=== PATIENT | male | born 1990 | race Caucasian/White ===

== ENCOUNTER 2021-05-02 16:12 | Outpatient (CLI) | payer OTHER, SELFPAY ==
--- NOTE | ~2021-05-02 | CT_ITS ---
EXAMINATION: CT abdomen pelvis w con DATE: 05/02/2021 16:36 INDICATION: Left lower quadrant abdominal pain. TECHNIQUE: Computed tomography (CT) of the abdomen and pelvis was performed with 100 mL Omnipaque 350 intravenous contrast. Automated exposure control and iterative reconstruction technique were employe d. The dose-length product was 1111.50 mGy-cm. COMPARISON: None. FINDINGS: The visualized portions of the lung bases are clear without pneumonia or pleural effusion. The heart size is normal. No pericardial effusion. There is diffuse hepatic steatosis. The gallbladde r, spleen, pancreas, adrenal glands, and kidneys are normal. There is prominent fat in the inguinal c anals bilaterally that may be hernias. There are scattered diverticula in the colon. There is wall th ickening of the sigmoid colon with surrounding fat stranding, consistent with diverticulitis. The joyce endix is normal. There are no dilated loops of bowel. There are no pathologically enlarged lymph node s. There is no free intraperitoneal fluid. There is mild lumbar spondylosis. IMPRESSION: 1. Sigmoid diverticulitis. No perforation or abscess. Reviewed, dictated and finalized at location A.
== END 2021-05-02 16:13 | disposition home or self-care (01) ==
LOC: ANHIMG 16:17
PROVIDERS: PCP Physician Assistant; Visit Provider Physician Assistant
DX: K57.32 Diverticulitis of large intestine without perforation or abscess without bleeding (principal)
CPT/HCPCS: 74177; Q9967

== ENCOUNTER → 2021-08-15 03:42 | Outpatient (CLI) | payer OTHER, SELFPAY ==
[2021-08-15 19:14] LABS: SARS-CoV-2 RNA PCR Positive
== END ==
PROVIDERS: PCP Physician Assistant; Visit Provider Physician Assistant
DX: U07.1 COVID-19 (principal)
CPT/HCPCS: C9803; U0003; U0005

== ENCOUNTER 2022-11-08 16:39 | Emergency (ER) | payer OTHER, SELFPAY ==
[2022-11-08 17:22] VITALS: BP 147/97; PULSE 99; RESP 16; TEMP 37.1; O2SAT 99
--- NOTE | 2022-11-09 19:07 | ED.GENADULT ---
HPI - General Adult General Chief complaint: Abdominal Pain Stated complaint: lower abdomen pain History of Present Illness HPI narrative: 31 y/o male. PMHx non-contributory. [facility] with acute complaints of LLQ/RLQ abdominal pain, worsening in the past 48 hours. He describes a 'sharp' abdominal discomfort, radiating across lower abdomen and RLQ. -Positive nausea, no emesis. -Denies fever. -No chest pain, dyspnea. -No flank pain, urinary concerns. -Denies loose or bloody stool. -No falls or abdominal traumas. Related Data Allergies Allergy/AdvReac Type Severity Reaction Status Date / Time No Known Allergies Allergy Verified 11/08/22 18:26 Review of Systems Review of Systems: CONSTITUTIONAL: Denies fever, chills, sweats. CARDIOVASCULAR: Denies chest pain, palpitations, edema. RESPIRATORY: Denies dyspnea, wheezing, cough GASTROINTESTINAL: Positive abdominal pain, nausea. No vomiting, diarrhea. GENITOURINARY: Denies dysuria, hematuria, abnormal discharge All other systems have been reviewed: Unless noted remaining ROS Negative. [facility] Family History Family History Mother Patient's mother is in good health Father Patient's father is in good health Sibling Patient's brother is in good health Social History Social History Smoking status: Former smoker Second hand tobacco smoke exposure: No Smoking end date: 11/11/12 Alcohol intake: current Exam Narrative: GENERAL: This is a well-nourished, well-developed adult, in no apparent distress. HEAD: normocephalic EYES: PERRL. Sclera clear/white. NOSE: External nose normal. THROAT: Mucous membranes moist CARDIOVASCULAR: Regular rate and rhythm without murmurs, gallops, or rubs. RESPIRATORY: Clear to auscultation. GASTROINTESTINAL: Abdomen soft, nondistended. With LLQ/RLQ tenderness and rebound. Bowel sounds are active. No guarding. SKIN: No janudice NEURO: Alert, active, and age appropriate. Course Course Level of Care: Express Care Visit Vital Signs Vital signs: Vital Signs Temperature 37.1 C 11/08/22 17:22 Pulse Rate 99 11/08/22 17:22 Respiratory Rate 16 11/08/22 17:22 Blood Pressure 147/97 H 11/08/22 17:22 Pulse Oximetry 99 11/08/22 17:22 Temperature 37.1 C 11/08/22 17:22 Pulse Rate 99 11/08/22 17:22 Respiratory Rate 16 11/08/22 17:22 Blood Pressure 147/97 H 11/08/22 17:22 Pulse Oximetry 99 11/08/22 17:22 Transfer Transfered to: [place] (ER ) Transportation: Other (Personal Vehicle. ) Transfer rationale: [facility] care [facility]. Accepting physician: MD Don. Medical Decision Making MDM Narrative Medical decision making narrative: -RLQ/LLQ abdominal pain and rebound. -Client will need additional resources to include CT abdominal imaging and laboratory studies, that are unfortunately not available here at the [facility] location. -DDX: Acute Abdomen, appendicitis, Colitis, Diverticulitis, Cholecystitis, SBO, or other. -Transfer to [place] [facility], [facility] care. Accepting MD Don. -Plan for transfer and need for additional workup has been reviewed with the patient at the bedside, whom voices no additional questions or concerns and agrees. -I appreciate the above [place] ED MD assist in his clinical case. Thank you. Differential Diagnosis Differential Diagnosis: Differential Diagnosis: Consideration of the following conditions may be warranted for the presenting problem, they are not final diagnoses: Acute Abdomen, appendicitis, Colitis, Diverticulitis, Cholecystitis, SBO, or other. Vital Signs Vital Signs: Vital Signs Temperature 37.1 C 11/08/22 17:22 Pulse Rate 99 11/08/22 17:22 Respiratory Rate 16 11/08/22 17:22 Blood Pressure 147/97 H 11/08/22 17:22 Pulse Oximetry 99 11/08/22 17:22 Temperature 37.1 C 11/08/22 17:22
== END 2022-11-08 18:00 | disposition short-term general hospital (02) ==
PROVIDERS: Emergency Provider Nurse Practitioner Adult Health; PCP Physician Assistant
DX: R10.32 Left lower quadrant pain (principal); R10.31 Right lower quadrant pain; Z87.891 Personal history of nicotine dependence
CPT/HCPCS: 81003; 99212; G0463

== ENCOUNTER 2022-11-08 18:22 | Emergency (ER) | payer OTHER, SELFPAY ==
[2022-11-08 18:23] VITALS: PULSE 108; RESP 15; TEMP 36.9; O2SAT 99
[2022-11-08 18:39] LABS: Basophils Absolute Auto 0.1 K/mm3 (0.0-0.1); Basophils Percent Auto 0.4 % (0.2-1.2); Eosinophils Absolute Auto 0.1 K/mm3 (0-0.3); Eosinophils Percent Auto 0.9 % (0-4.4); Hematocrit 42.4 % (42.0-52.0); Hemoglobin 14.3 g/dL (14.0-18.0); Immature Granulocyte Absolute 0.11 K/mm3 (0.00-0.031); Immature Granulocyte Percent A 0.8 % (0-0.5); Lymphocytes Percent Auto 16.4 % (18.3-44.2); Mean Corpuscular HGB Conc 33.7 g/dl (32-36); Mean Corpuscular Hemoglobin 28.3 pg (26-34); Mean Corpuscular Volume 83.8 fl (80-100); Mean Platelet Volume 8.6 fl (7.4-10.4); Monocytes Absolute Auto 1.1 K/mm3 (0.1-0.6); Monocytes Percent Auto 7.6 % (2.6-8.5); Neutrophils Absolute Auto 10.9 K/mm3 (1.3-6.7); Neutrophils Percent Auto 73.9 % (45.5-73.1); Platelet Count Result 258 k/mm3 (150-375); Red Blood Count 5.06 M/mm3 (4.6-6.20); Red Cell Distribution Width 12.4 % (11.5-14.5); White Blood Count 14.7 K/mm3 (4.5-10.0)
[2022-11-08 18:50] LABS: Alanine Aminotransferase 53 U/L (6-50); Albumin Level 4.6 g/dL (3.5-5.1); Alkaline Phosphatase 80 U/L (38-126); Anion Gap 8 mmol/L (8-16); Aspartate Amino Transferase 25 U/L (17-59); Bilirubin,Total 0.5 mg/dL (0.2-1.3); Blood Urea Nitrogen 12 mg/dL (9-20); Carbon Dioxide 29 mmol/L (22-30); Chloride 102 mmol/L (98-107); Estimated CRCL calculation 124 ml/min; Estimated Glomerular Filt Rate > 60; Glucose 97 mg/dL (65-110); Lipase 56 U/L (23-300); Potassium 3.8 mmol/L (3.4-5.0); Sodium 139 mmol/L (137-145)
[2022-11-08 19:33] LABS: Add Urine Microscopic? NO; Appearance Urine Clear (Clear); Bilirubin Urine Negative (Negative); Blood Urine Negative (Negative); Color Urine Yellow (Yellow); Glucose Urine UA Negative (Negative); Ketones Urine Negative (Negative); Leukocyte Esterase Ur Negative LEU/UL (Negative); Nitrate Urine Negative (Negative); Protein Urine Negative (Negative); Urobilinogen Urine 0.2 mg/dL (<2.0); pH Urine 5.5 (5.0-9.0)
== END 2022-11-08 20:00 | disposition left against medical advice (07) ==
PROVIDERS: Emergency Provider Emergency Medicine; PCP Physician Assistant
DX: R10.32 Left lower quadrant pain (principal)
CPT/HCPCS: 36415; 80053; 81003; 83690; 85025; 99199; 99212; G0463

== ENCOUNTER 2022-11-09 11:34 | Emergency (ER) | payer OTHER, SELFPAY ==
--- NOTE | 2022-11-09 11:36 | PC.NURSE ---
After checking pt in, pt looks at the waiting room and states Jose Angel waddell just go to [place] Pt ambluates to the exit with no difficulty
== END 2022-11-09 11:36 | disposition left against medical advice (07) ==
PROVIDERS: PCP Physician Assistant
DX: Z53.21 Procedure and treatment not carried out due to patient leaving prior to being seen by health care provider (principal)
CPT/HCPCS: 99199

== ENCOUNTER 2024-09-01 13:24 | Emergency (ER) | payer OTHER, SELFPAY ==
--- NOTE | ~2024-09-01 | XR_ITS ---
3 VIEWS LUMBAR SPINE Ordering provider: Georgia Triana APRN History: . pain, pulling injury yesterday . Comparison: None. FINDINGS: VERTEBRAL BODIES: No visible fracture or subluxation. DISK SPACES: Normal. SOFT TISSUES: Normal. IMPRESSION: No acute osseous abnormality lumbar spine. Reviewed, dictated and finalized at location A.
[2024-09-01 13:38] VITALS: BP 111/67; PULSE 60; RESP 17; TEMP 36.6; O2SAT 100
--- NOTE | 2024-09-01 13:40 | ED.BACK ---
HPI - Back Pain/Injury General Chief Complaint: Back Pain/Injury Stated Complaint: sharp pain lower back Time Seen by Provider: 09/01/24 13:40 Source: patient Mode of arrival: ambulatory Limitations: no limitations History of Present Illness HPI Narrative: 33 y/o male presented for c/o mid lower back pain after injury sustained yesterday. States he was trying to pull a wooden stake out of the yard, but it did not budge when he pulled as hard as he could. He felt a pop and has had pain since. Rates pain 06/20. Pain is worse when raising from a seated position or when walking. Taking Tylenol and ibuprofen. Denies pain radiating into the hips or legs, numbness, tingling, weakness of the lower extremities, or change in gait, saddle paresthesia or loss of bowel or bladder. Related Data Home Medications Medication Instructions Recorded Confirmed aripiprazole 5 mg tablet (Abilify) 5 mg PO DAILY 09/01/24 09/01/24 oxcarbazepine 150 mg tablet 150 mg PO BID 09/01/24 09/01/24 Allergies Allergy/AdvReac Type Severity Reaction Status Date / Time No Known Allergies Allergy Verified 09/01/24 13:29 Review of Systems Review of Systems: CONSTITUTIONAL: Denies body aches, fever, chills EYES: Denies visual changes CARDIOVASCULAR: Denies chest pain, palpitations, or edema. RESPIRATORY: Denies cough or dyspnea. GASTROINTESTINAL: Denies abdominal pain, nausea, vomiting, or diarrhea. SKIN: Denies rash, itching, or wounds. MUSCULOSKELETAL: reports back pain NEUROLOGIC: Denies headache, numbness, tingling, or weakness. All systems reviewed & are unremarkable except as noted in HPI and below PMFSH Past Medical History Medical History Acute diverticulitis Family History Family History Mother Patient's mother is in good health Father Patient's father is in good health Sibling Patient's brother is in good health Social History Social History Smoking status: Former smoker Second hand tobacco smoke exposure: No Smoking end date: 11/11/12 Alcohol intake: current Substance use: unknown Lack of Transportation: No Lack of Food: Never True Current Housing: I Have Housing Concerned About Future Housing: No Difficulty Paying Gas/Electric Bills: No Difficulty Paying for Meds: No Currently Unemployed: No Education: Associate Degree Difficulty w/ Childcare or Family Care: No Comments At time of signature, I have reviewed and agree with nursing past medical, surgical, social and family history unless otherwise noted. Please see nursing chart for further information. There is no relevant family history pertinent to the presenting complaint Exam Narrative: GENERAL: Well-appearing NECK: Supple. full ROM CHEST: Speaks in full sentences. No respiratory distress. HEART: Regular rate and rhythm. Normal and equal peripheral pulses. MUSC: Lumbar paraspinal tenderness with palpation. No Vertebral point tenderness or step off. BLEs with normal strength and sensation, normal range of motion but endorses pain to lower back with movement. No ecchymosis, No open wounds or obvious deformity; alignment normal, pulse palpable and equal bilaterally, skin warm, dry, pink. Capillary refill less than 3 seconds. Gait steady. SKIN: Warm, dry, no rash. NEURO: Alert and oriented x3. Back/Spine/Pelvis: Back/spine/pelvis image: 1. location of pain Course Course Emergency Course: Patient is aware of diagnosis, understands and agrees to treatment plan. Anticipatory guidance given. Patient agrees to follow-up as directed and is aware of reasons to seek care at the emergency department. Portions of this record may have been created with voice recognition software Level of Care: Express Care Visit Vital Signs Vital signs: Reviewed MDM - Back Pain/Inj
== END 2024-09-01 14:20 | disposition home or self-care (01) ==
PROVIDERS: Emergency Provider Nurse Practitioner Family; PCP Nurse Practitioner
DX: S39.012A Strain of muscle, fascia and tendon of lower back, initial encounter (principal); X50.0XXA Overexertion from strenuous movement or load, initial encounter; Z87.891 Personal history of nicotine dependence
CPT/HCPCS: 72110; 99213; G0463

== ENCOUNTER 2025-09-13 10:13 | Emergency (ER) | payer OTHER, SELFPAY ==
--- NOTE | ~2025-09-13 | XR_ITS ---
PROCEDURE(S): Radiography CT C-spine 2-3 views INDICATION(S): Injury COMPARISON(S): 2006 TECHNIQUE: 3 radiographic images were submitted for interpretation. FINDINGS: Bones: There are no fractures seen. There are no destructive lesions or other lesions identified. Joints: There is normal alignment. Vertebral bodies are well maintained. IMPRESSION: No acute abnormalities are seen. Reviewed, dictated and finalized at location A. [employer]LOBAL [employer]AL[employer]
[2025-09-13 10:28] VITALS: BP 137/93; PULSE 71; RESP 18; TEMP 36.2; O2SAT 100
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
--- OUTSIDE RECORDS SUMMARY | 2025-09-13 11:11 | XMS_ITS | Clinical Summary ---
Author Organization [facility] Address [address] [place] [address] Care Team Providers Care Computer System Specialist Name Role Phone Tobi Juarez PA-C Primary Care Provider [phone] Allergies No known active allergies Medications ARIPiprazole (ABILIFY) 5 MG tablet Take 1 tablet (5 mg total) by mouth every morning. 2 Active OXcarbazepine (TRILEPTAL) 300 MG tablet TAKE 1 TABLET BY MOUTH IN THE MORNING AND 1 AT BEDTIME 2 Active PREVIDENT 5000 BOOSTER PLUS 1.1 % Paste USE 1 TO 2 TIMES DAILY TOOTHPASTE 2 Active Active Problems Problem Noted Date Diagnosed Date Diverticulitis 06/03/2023 Overview (06/03/2023): Added automatically from request for surgery [id number] Bipolar disorder, current ep isode manic without psychotic features 08/25/2015 Uncomplicated alcohol abuse 05/19/2012 Attention deficit hyperactivity disorder (ADHD) 06/12/2010 Family History Medical History Relation Comments No Known Problems Father No Known Problems Mother Relation Status Comments Father Alive Mother Alive Social History Tobacco Use Types Packs/Day Years Used Date Smoking Tobacco: Former Cigarettes Smokeless Tobacco: Never Alcohol Use Standard Drinks/Week Comments Yes 0 (1 standard drink = 0.6 oz pur e alcohol) socially PHQ-2 Answer Date Recorded Patient Health Questionnaire-2 Score 0 05/31/2023 Sex and Gender Information Value Date Recorded Sex Assigned at Male 05/28/2023 10:00 AM CDT Legal Sex Male 7:42 PM CDT Gender Identity Male 05/28/2023 10:00 AM CDT Sexual Orientation Straight 05/28/2023 10 :00 AM CDT Last Filed Vital Signs Vital Sign Reading Time Taken Comments Blood Pressure 124/74 01/05/2025 12:50 PM DIRECTOR PRODUCT MANAGEMENT Pulse 72 01/05/2025 12:50 PM DIRECTOR PRODUCT MANAGEMENT Temperature 36.8 C (98.3 F) 02/26/2024 7:18 AM CDT Respiratory Rate 16 01/05/2025 12:5 0 PM DIRECTOR PRODUCT MANAGEMENT Oxygen Saturation 96% 01/05/2025 12: 50 PM DIRECTOR PRODUCT MANAGEMENT Inhaled Oxygen Concentration - - Weight 95.2 kg (209 lb 12.8 oz) 025 12:50 PM DIRECTOR PRODUCT MANAGEMENT Height 177.8 cm (5' 10) 02/26/2024 7:18 AM CDT Body Mass Index 30.1 02/26/2024 7:18 AM CDT Plan of Treatment Health Maintenance Due Date Last Done Comments Annual Physical 1993 Hepatitis C 2008 DTaP, Tdap and Td Vaccines ( 1 - Tdap) 2009 Hepatitis B Vaccines (1 of 3 - 19+ 3-dose series) 2009 HPV Vaccines (1 - 3-dose SCD M series) 2017 PHQ-2 (Physician [place]) 11/11/2024 COVID-19 Vaccine (1 - 2024-2 6 season) 2025 Influenza Adult (#1) 2025 Hepatitis A Vaccines Aged Out No long er eligible based on patient's age to complete this topic Meningococcal B Vaccine Aged Out No l onger eligible based on patient's age to complete this topic Meningococcal Vaccine Aged Out No jn emir eligible based on patient's age to complete this topic Pneumococcal Vaccine: Pediat rics (0 to 5 Years) and At-Risk Patients (6 to 49 Years) Aged Out No longer eligible b ased on patient's age to complete this topic RSV Immunizations Under 20 Months Aged Out No longer eligible based on patient's age to complete this topic Insurance C[employer] CIGNA Care Teams Computer System Specialist Relationship Specialty Start Date End Date Tobi Juarez PA-C [id number] [place], [place] [id number] PCP - General PHYSICIAN MANDARIN CHINESE TEACHER 11/09/22
== END 2025-09-13 11:28 | disposition home or self-care (01) ==
PROVIDERS: Emergency Provider Nurse Practitioner Family; PCP Nurse Practitioner
DX: S16.1XXA Strain of muscle, fascia and tendon at neck level, initial encounter (principal); V18.4XXA Pedal cycle driver injured in noncollision transport accident in traffic accident, initial encounter; H65.01 Acute serous otitis media, right ear; Z87.891 Personal history of nicotine dependence
CPT/HCPCS: 72040; 99213; G0463